=== PATIENT | male | born 1955 | race Caucasian/White ===

== ENCOUNTER 2018-03-24 09:12 | Outpatient (CLI) | payer MEDICARE ==
--- NOTE | 2018-03-24 12:19 | CT ---
CT THORAX WITH IV CONTRAST CT ABDOMEN AND PELVIS WITH IV CONTRAST: DATE: 03/24/18. HISTORY: Malignant neoplasm of prostate gland. Followup osseous metastatic disease. The patient is nauseated . History of prior chemotherapy treatment. CT THORAX: COMPARISON: 03/19/16. FINDINGS: A linear area of scarring is again seen in the anterior-inferior aspect of the right upper lobe. The lungs are otherwise clear. No pulmonary nodule, mass, or pleural effusion is seen. Vascular calcifications are again seen in the thoracic aorta. There is no evidence of lymphadenopath y. There are multiple osseous sclerotic lesions seen throughout the bilateral ribs, thoracic spine, ster num, left clavicle, and in each scapula related to diffuse osseous metastatic disease. The metastati c lesions have certainly progressed compared to prior CT thorax on 03/19/16. CT ABDOMEN AND PELVIS: COMPARISON: 09/19/16. FINDINGS: There is a stable left renal cyst. Subcentimeter too small to characterize hypodense lesion is seen in the inferior pole of the right kidney. The liver, spleen, pancreas, bilateral adrenal glands, opacified bowel, and urinary bladder demonstra te a normal CT appearance. Vascular calcifications are seen in the abdominal aorta and involving the iliac arteries. There is no evidence of lymphadenopathy.. Multiple sclerotic osseous metastatic lesions are seen throughout the lumbar spine and in the pelvis including the sacrum as well as involving the bilateral proximal femurs. Although there are innumera ble osseous metastatic lesions, the number of metastatic lesions is overall stable compared to CT abd omen and pelvis in 2017. IMPRESSION: 1. Diffuse osseous metastatic disease as described above. 2. No evidence of lymphadenopathy. 3. Left renal cyst with subcentimeter hypodense lesion right kidney. 4. Osseous metastatic lesions have increased when compared to CT thorax in 2016, but CT of the chest , abdomen, and pelvis otherwise stable in appearance. POS: [facility]
--- NOTE | 2018-03-24 15:22 | NM ---
NUCLEAR MEDICINE WHOLE BODY BONE SCAN: HISTORY: Malignant neoplasm of prostate. COMPARISON: Nuclear medicine bone scan 09/19/16. Outside CT chest, abdomen, and pelvis 03/24/18. TECHNIQUE: Two-hour whole body delayed images were obtained after the intravenous administration of 30.4 mCi Herminio hnetium 99m MDP. There is new activity in the left ischium. There is also some new activity in the L5 and L3 vertebra l bodies. There is increased activity in the right humeral diaphysis. The previously noted activity in the left calvarium has decreased with now activity involving the rig ht calvarium. Both kidneys and urinary bladder are visualized. IMPRESSION: Interval resolution of a few of the previously described osseous metastatic disease with new foci on the calvarium, spine, and pelvis. POS: [facility]
== END 2018-03-24 09:13 | disposition home or self-care (01) ==
LOC: CT 09:12
PROVIDERS: ATTEND Internal Medicine Hematology & Oncology
DX: C61 Malignant neoplasm of prostate (principal); C79.51 Secondary malignant neoplasm of bone; N28.1 Cyst of kidney, acquired; N28.89 Other specified disorders of kidney and ureter
CPT/HCPCS: 71260; 74177; 78306; 82565; A9503

== ENCOUNTER 2018-12-05 00:38 | Emergency (ER) | payer MEDICARE | END 2018-12-05 01:49 | disposition left against medical advice (07) | LOC: ERS 00:38 | DX: Z53.21 Procedure and treatment not carried out due to patient leaving prior to being seen by health care provider (principal) ==

== ENCOUNTER 2018-12-12 08:23 | Outpatient (CLI) | payer MEDICARE ==
--- NOTE | 2018-12-12 10:29 | CT ---
CT OF THE CHEST WITH CONTRAST CT OF THE ABDOMEN AND PELVIS WITH CONTRAST: COMPARISON: 03/24/2018. HISTORY: Prostate cancer with metastatic disease. TECHNIQUE: 1. Multiple contiguous axial images were obtained in a CT of the chest with contrast. Coronal refor mats were performed. 2. Multiple contiguous axial images were obtained in a CT of the abdomen and pelvis with contrast. Coronal reformats were performed. FINDINGS: CT CHEST: No pulmonary nodules identified. No focal infiltrates are seen. No pneumothorax or pleural effusion are seen. The heart is normal in size without focal cardiac abnormality. No hilar or mediastinal lymphadenopat hy are seen. The chest wall soft tissues are unremarkable. There are diffuse stable sclerotic lesions in the visu alized skeleton consistent with diffuse osseous metastases. CT ABDOMEN/PELVIS: There has been interval development of innumerable nodules scattered throughout the liver measuring u p to 6.2 cm in size consistent with diffuse hepatic metastatic disease. These were not seen on the p rior examination. There are stable cysts in the left kidney. The right kidney, gallbladder, adrenal lands, spleen, and pancreas are unremarkable. There is a 3.9 cm mass associated with the sigmoid colon. This demonstrates a small amount of inflam matory change in the adjacent sigmoid mesenteric fat. This also was not definitely seen on the prior examination. No abdominal or pelvic lymphadenopathy are seen. The small bowel is normal in caliber . The abdominal wall soft tissues are unremarkable. There are stable diffuse sclerotic lesions in the skeleton consistent with diffuse osseous metastatic disease. IMPRESSION: 1. Diffuse metastatic disease appears stable. 2. There is interval development of innumerable lesions scattered throughout the liver consistent wi th hepatic metastases. 3. There is a mass-like region adjacent to the sigmoid colon. This could represent a metastatic les ion or a primary colonic malignancy. This appears associated with the sigmoid colon and should be vi sible via sigmoidoscopy or colonoscopy. 4. Left renal cysts. POS: [facility]
--- NOTE | 2018-12-12 13:09 | NM ---
NM Bone Scan STANDARD HISTORY: Malignant neoplasm of prostate COMPARISON: 03/24/2018 RADIOPHARMACEUTICAL: 30 mCi technetium 99m-MDP injected intravenously FINDINGS: Multiple foci of increased tracer localization in the skeleton are again seen. These includ e the skull, facial skeleton, ribs, spine, pelvis, right scapula and humerus. Some of these lesions have improved since the last exam. Improvement is seen in the lower lumbar spine and right upper extr emity. A new lesion is seen in the left pelvis and the inferior sacroiliac region. A new focus of abnormal u ptake is also seen in the right 11th rib. Tracer excretion through the kidneys is within normal limits. IMPRESSION: Diffuse osseous metastatic disease with mixed response to therapy since 03/24/2018
[2018-12-12] MEDS ORDERED: Iopamidol 370 76% 100 ML VIAL ONE (15:04)
== END 2018-12-12 08:24 | disposition home or self-care (01) ==
LOC: CT 08:23
PROVIDERS: ATTEND Internal Medicine Hematology & Oncology
DX: C61 Malignant neoplasm of prostate (principal); C79.51 Secondary malignant neoplasm of bone
CPT/HCPCS: 71260; 74177; 78306; A9503

== ENCOUNTER 2019-06-04 09:04 | Outpatient (CLI) | payer MEDICARE ==
[2019-06-04] MEDS ORDERED: Iopamidol 370 76% 100 ML VIAL ONE (10:15)
--- NOTE | 2019-06-04 13:19 | NM ---
WHOLE BODY BONE SCAN: HISTORY: Prostate cancer RADIOPHARMACEUTICAL: 28.6 mCi technetium-99m MDP injected intravenously. COMPARISON: 12/12/2018 FINDINGS: Diffuse abnormal increased uptake of the radiopharmaceutical is seen in the ribs, spine, pelvic bones , skull, sternum, and right humerus. These areas have not changed significantly compared to the prior exam. Tracer excretion through the kidneys is within normal limits. IMPRESSION: Diffuse stable osseous metastatic disease.
--- NOTE | 2019-06-04 13:21 | CT ---
CT ABDOMEN AND PELVIS WITH IV CONTRAST: Oral contrast was also given. Multiplanar reconstruction. 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 COMPARISON: Comparison is made to CT abdomen and pelvis 12/12/2018. FINDINGS: The lung bases are clear with chronic lung parenchymal change noted. Images through the liver again show numerous low-density foci throughout the liver consistent with di ffuse liver metastatic disease. However, there has been improvement in the hepatic lesions in the li alisa when compared to the prior study. The lesions are smaller and less numerous today, although ther e continue to be too numerous to count lesions. The largest lesion is seen in the posterior right lo be measuring 2.4 cm. Most lesions are subcentimeter to 1 cm in size. The spleen and pancreas are unremarkable. Adrenal glands normal. Kidneys unremarkable. A cyst from the inferior left kidney is stable. Small bowel loops are normal in appearance. Colon is filled with stool and gas. The questioned dens ity seen adjacent to the sigmoid colon on the prior study is not identified today. Aorta shows atherosclerotic calcification without aneurysmal dilatation. Images through the pelvis show mild urinary bladder wall thickening similar to the prior exam. The p rostate is not significantly enlarged and there are prostatic calcifications which are stable. No pe lvic adenopathy identified. The osseous windows again show diffuse osseous lesions in all the visualized bones including proximal femurs, pelvis, and spine. The extent of the osseous lesions did not appear significantly changed. IMPRESSION: 1. Numerous metastatic lesions of the liver are again noted. However, the number and size of these lesions have decreased indicating interval improvement in the hepatic metastatic disease. 2. Diffuse osseous metastatic disease again noted without evidence of significant change. 3. Mild urinary bladder wall thickening appears stable. 4. Left renal cystic lesion is unchanged. POS: [facility]
== END 2019-06-04 09:05 | disposition home or self-care (01) ==
LOC: CT 09:04
PROVIDERS: ATTEND Internal Medicine Hematology & Oncology
DX: C61 Malignant neoplasm of prostate (principal); C79.51 Secondary malignant neoplasm of bone; R11.0 Nausea; K76.9 Liver disease, unspecified; N32.89 Other specified disorders of bladder; N28.1 Cyst of kidney, acquired
CPT/HCPCS: 74177; 78306; A9503; Q9967

== ENCOUNTER 2019-11-13 10:24 | Outpatient (CLI) | payer MEDICARE ==
--- NOTE | 2019-11-13 11:30 | CT ---
CT Chest Abd Pelvis W Con HISTORY: Prostate cancer with bone metastases. Rising PSA. COMPARISON: 12/12/2018 exam. FINDINGS: The lungs are clear of any infiltrative process in there are no pulmonary nodules identifie d. No pleural effusions. There is no significant mediastinal, hilar or axillary adenopathy. Thyroid gland appears unremarkable . CT of abdomen performed with contrast enhancement: Innumerable minute liver masses are present. Some of these have increased in size. Specifically a les ion within the caudate region shows some of the greater growth it measures 3.9 cm as compared to 1.3 cm on the prior study. A left lobe liver lesion axial image 63 is ill-defined but measures approx imately 4.6 cm as compared to 2.6 cm on the prior study. The spleen pancreas and gallbladder regions appear unremarkable. Right and left adrenal glands are normal. Left renal cysts are stable. There is no significant periao rtic or mesenteric lymphadenopathy. CT of pelvis performed with contrast: A left external iliac lymph node axial image 106 is stable in s ize at approximately 10 mm. The soft tissue mass in the central pelvis which is directly adjacent to the sigmoid and may actually infiltrate the sigmoid colon is slightly decreased in size as compare d the prior examination measuring 3.2 as compared to 3.9 cm. Prostate calcifications are present. Osseous structures: Extensive bony metastatic disease is again demonstrated, it is difficult due to t he innumerable metastases to make good comparison although I do see a few new mid thoracic sclerotic bone lesions. IMPRESSION: 1. Mild interval progression in the size of some of the hepatic lesions. 2. Slight decrease in size of the mass in the central pelvis adjacent to or associated with the sigmo id colon. 3. Extensive bony metastatic disease with a few new sclerotic bone lesions that are seen within the m idthoracic spine level.
--- NOTE | 2019-11-13 14:42 | NM ---
NUCLEAR MEDICINE BONE SCAN WHOLE BODY: (Skeletal scintigraphy) DATE: 11/13/2019 HISTORY: 64-year-old male with prostate cancer with bone metastases. TECHNIQUE: IV injection of technetium 99m-MDP: 32.6 mCi 3 hour delayed whole body skeletal scintigraphy in anterior and posterior views. FINDINGS: There are numerous foci of increased uptake in the calvarium, ribs, pelvis, right proximal humeral sh aft, and spine. The degree of uptake intensity has decreased slightly for most of these lesions since 06/04/2019, and has steadily significantly decreased compared to previous older bone scans of 08/2019, 03/24/2018, and 09/19/2016. The exception to this is a focus of intensely increased uptake in the left sacral ala, which has been steadily increasing. IMPRESSION: 1. Numerous skeletal metastases. 2. Interval progressive decrease in intensity of uptake involving the vast majority of the skeletal m etastatic deposits. 3. The exception to this is a focus of steadily increasing uptake in the lesion in the left sacral al a.
[2019-11-13] MEDS ORDERED: Iopamidol 370 76% 100 ML VIAL ONE (15:27)
== END 2019-11-13 10:25 | disposition home or self-care (01) ==
LOC: CT 10:24
PROVIDERS: ATTEND Internal Medicine Hematology & Oncology
DX: C61 Malignant neoplasm of prostate (principal); C79.51 Secondary malignant neoplasm of bone; R97.20 Elevated prostate specific antigen [PSA]; C78.7 Secondary malignant neoplasm of liver and intrahepatic bile duct; R19.09 Other intra-abdominal and pelvic swelling, mass and lump
CPT/HCPCS: 71260; 74177; 78306; A9503; Q9967